=== PATIENT | male | born 1945 | race Caucasian/White ===

== ENCOUNTER → 2023-08-01 12:20 | Outpatient (BNVA) | payer OTHER, SELFPAY | PROVIDERS: PCP Family Medicine; Referring Provider Family Medicine; Visit Provider Surgery | DX: K40.90 Unilateral inguinal hernia, without obstruction or gangrene, not specified as recurrent (principal) | CPT/HCPCS: 99204 ==

== ENCOUNTER → 2023-08-15 10:38 | Outpatient (BNVA) | payer MEDICARE, SELFPAY | PROVIDERS: PCP Family Medicine; Visit Provider Family Medicine | DX: Z01.818 Encounter for other preprocedural examination (principal) | CPT/HCPCS: 80053; 85025 ==

== ENCOUNTER 2023-08-20 10:55 | Day surgery (SDC) | payer OTHER, SELFPAY ==
[2023-08-20] VITALS (10 sets, daily range): BP systolic 141–178; BP diastolic 74–97; PULSE 69–96; RESP 13–19; TEMP 36.4–36.9; O2SAT 94–100; BMI 25.0
--- NOTE | 2023-08-20 10:37 | P.HPUD_ITS ---
Surgery/Procedure H&P Update DATE OF PROCEDURE: August 20, 2023 DATE H&P PERFORMED: 08/01/23 H&P UPDATE INFORMATION: I have reviewed H&P completed within last 30 days, I have examined patient prior to procedure, No changes to prior documentation and [place] [facility] [place] indicated PLANNED PROCEDURE: Operation Date: 08/20/23 12:40 Proposed Procedures p [id number] lap possible open left inguinal hernia repair with mesh K40.90(Not Applicable) - Demond Roe MD
[2023-08-20] MEDS: sodium chloride 0.9% 1,000 ML 30 ML IV (11:29)
--- NOTE | 2023-08-20 12:21 | ANES.PREANE2 ---
Pre-Anesthetic Assessment Height/Weight: Height 1.83 m Weight 83.915 kg Temp Pulse Resp BP Pulse Ox O2 Del Method 97.5 F L 96 18 178/97 98 Room Air 08/20/23 11:20 08/20/23 11:20 08/20/23 11:20 08/20/23 11:20 08/20/23 11:20 08/20/23 11:21 Preop Diagnosis: Left inguinal hernia Operation Date: 08/20/23 12:40 Proposed Procedures p 61388 lap possible open left inguinal hernia repair with mesh K40.90(Not Applicable) - Demond Roe MD Familial anesthetic complications: None Was Beta Lior taken within 24 hours: N/A Was Clonidine taken within 24 hours: N/A Last intake: Intake Last Liquid Date 08/19/23 Last Liquid Time 19:00 Last Solid Date 08/19/23 Last Solid Time 19:00 Social No alcohol and No tobacco Exam alert, oriented x 3, clear to auscultation bilaterally and regular rate & rhythm Airway Mallampati: Class II Pulmonary Chronic Obstructive Pulmonary Disease (mild) CV/HEM Hypertension Anesthetic Plan ASA status: 3 Anesthesia: General Risk of > 500 ml blood loss (7ml/kg in children): No Medications/Allergies Home Medications Medication Instructions Recorded Confirmed Last Taken Type amlodipine 10 mg tablet 10 mg PO DAILY 08/15/23 08/20/23 08/19/23 History atorvastatin 10 mg tablet 10 mg PO DAILY 08/15/23 08/20/23 08/19/23 History benazepril 20 mg tablet 20 mg PO DAILY 08/15/23 08/20/23 08/19/23 History gabapentin 400 mg capsule 400 mg PO DAILY PRN Pain 08/15/23 08/20/23 08/19/23 History Allergies Allergy/AdvReac Type Severity Reaction Status Date / Time No Known Allergies Allergy Unverified 08/17/23 12:35 Current Medications Generic Name Dose Route Start Last Admin Trade Name Freq PRN Reason Stop Dose Admin Sodium Chloride 1,000 mls @ 30 mls/hr 08/20/23 11:15 08/20/23 11:29 Sodium Chloride 0.9% IV 08/21/23 11:14 30 mls/hr .Q24H NORMA Administration PFSH Anesthesia Social History Smoking and tobacco/nicotine status: never used tobacco/nicotine Alcohol intake: never Substance/Drug Use: current Substance/Drug use frequency: daily Data Anesthesia Cardiac Studies: No Data to Display
[2023-08-20] MEDS: ceFAZolin 2,000 MG in sodium chloride 0.9% (plus) 50 ML 100 MG IV (14:36)
[2023-08-20] MEDS: BUPivacaine 0.25% INJ 10 mL INJECTION (15:03)
[2023-08-20] MEDS: lidocaine-epi 1% PF 1:200,000 30 mL SDV INJECTION (15:03)
--- NOTE | 2023-08-20 16:19 | P.OP_ITS ---
Operative Report Date of procedure: August 20, 2023 Pre-op diagnosis: Left inguinal hernia Post-op diagnosis: Direct and indirect left inguinal hernia Post-op findings: There was a direct and indirect left inguinal hernia. Procedure done: Laparoscopic left inguinal hernia repair with mesh. Implants: Left 3D max mesh Medium size Specimens removed/disposition: None Surgeon: Demond Roe MD Resource Development Director: LUCIO OR STaff Estimated blood loss: 15 Complications: none apparent Brief History: 78-year-old male who presented to my clinic for evaluation of left inguinal hernia. After discussion of all risk and benefits as documented in my preop note we decided to proceed with laparoscopic left inguinal hernia repair with mesh. Procedure: Patient was brought into the OR, she was placed in a spine position general esthesia was given. The abdomen was prepped and draped in the usual sterile fashion. Timeout was conducted. An infraumbilical incision was made measuring 1.5 cm, this incision was deepened until the anterior rectus sheath was identified on the left side, the anterior rectus sheath was then opened with electrocautery, the rectus muscle was retracted laterally exposing the retrorectus space, a Spacemaker was placed in the retrorectus space and carefully advanced to the level of the pubis. Under direct visualization the Spacemaker balloon was inflated developing the space of Retzius. The Spacemaker was then removed and replaced with a 12 mm trocar with balloon. Under direct visualization additional 5 mm trocars were placed in the suprapubic and infraumbilical positions. I then proceeded with dissection, I cleared the Junaid ligament from the midline to the left side, at this point no evidence of femoral hernia was identified, I then develop the lateral space of Borgess, at this point I decided to evaluate the direct and indirect spaces, in the direct space it was noticeable that the patient had a hernia that appeared to contain fat. The hernia was reduced into the preperitoneal space. I then proceeded to dissect the indirect space with careful dissection I was able to pull down a small hernia sac, I did this with careful consideration of preserving the vas deferens and the testicular vessels. I then placed a medium size left-sided 3D max mesh in the space, the mesh was fixed to the coopers ligament with an absorbable tacker. Hemostasis was verified. The preperitoneal space was then deflated under direct visualization to ensure adequate mesh placement. Wounds were closed in layers using #0 Vicryl for the anterior rectus sheath, #3-0 Vicryl for the subcutaneous tissue with Monocryl for the skin. Dermabond was applied. The patient tolerated the procedure well, was extubated and transferred to PACU in stable condition.
--- NOTE | 2023-08-20 17:50 | ANE.PACU2 ---
Inpatient post-anesthesia follow up: Airway intact: Yes Vital signs: Temperature 98.4 F Pulse Rate 78 Respiratory Rate 16 Blood Pressure 154/85 Pulse Oximetry 96 Oxygen Delivery Me thod Room Air Oxygen Flow Rate 8 Fraction of Inspir ed Oxygen Hydration adequate: Yes Nausea and vomiting: No Pain level: 1 Mental status: Baseline
== END 2023-08-20 17:50 | disposition home or self-care (01) ==
PROVIDERS: PCP Family Medicine; Visit Provider Surgery
PROC: (CPT 49650; principal; 2023-08-20 12:10)
DX: K40.90 Unilateral inguinal hernia, without obstruction or gangrene, not specified as recurrent (principal); J44.9 Chronic obstructive pulmonary disease, unspecified; I10 Essential (primary) hypertension
CPT/HCPCS: 49650; 51702; J0690; J1100; J2405; J2704; J3010; J3490; J7030

== ENCOUNTER → 2023-09-04 12:57 | Outpatient (BNVA) | payer OTHER, SELFPAY | PROVIDERS: PCP Family Medicine; Visit Provider Surgery | DX: K40.90 Unilateral inguinal hernia, without obstruction or gangrene, not specified as recurrent (principal); Z98.890 Other specified postprocedural states | CPT/HCPCS: 99024 ==

== ENCOUNTER → 2023-12-25 13:37 | Outpatient (BNVA) | payer OTHER, SELFPAY | PROVIDERS: PCP Family Medicine; Visit Provider Nurse Practitioner Family | DX: D48.5 Neoplasm of uncertain behavior of skin (principal); D22.4 Melanocytic nevi of scalp and neck; L81.4 Other melanin hyperpigmentation; L73.8 Other specified follicular disorders; L91.8 Other hypertrophic disorders of the skin; L57.8 Other skin changes due to chronic exposure to nonionizing radiation | CPT/HCPCS: 11102; 69100; 99203 ==

== ENCOUNTER → 2024-03-25 14:16 | Outpatient (BNVA) | payer OTHER, SELFPAY | PROVIDERS: PCP Family Medicine; Visit Provider Nurse Practitioner Family | DX: L72.0 Epidermal cyst (principal); L82.1 Other seborrheic keratosis; D22.4 Melanocytic nevi of scalp and neck; L81.4 Other melanin hyperpigmentation; Z86.007 Personal history of in-situ neoplasm of skin; Z09 Encounter for follow-up examination after completed treatment for conditions other than malignant neoplasm | CPT/HCPCS: 99213 ==

== ENCOUNTER → 2024-09-23 14:15 | Outpatient (BNVA) | payer OTHER, SELFPAY | PROVIDERS: PCP Family Medicine; Visit Provider Nurse Practitioner Family | DX: L82.1 Other seborrheic keratosis (principal); L81.4 Other melanin hyperpigmentation; Z08 Encounter for follow-up examination after completed treatment for malignant neoplasm; Z86.007 Personal history of in-situ neoplasm of skin; D48.5 Neoplasm of uncertain behavior of skin; L57.0 Actinic keratosis | CPT/HCPCS: 11102; 17000; 99213 ==

== ENCOUNTER → 2024-10-27 10:55 | Outpatient (BNVA) | payer OTHER, SELFPAY | PROVIDERS: PCP Family Medicine; Visit Provider Dermatology | DX: D04.39 Carcinoma in situ of skin of other parts of face (principal) | CPT/HCPCS: 17282 ==

== ENCOUNTER 2024-11-19 07:40 | Outpatient (CLI) | payer OTHER, SELFPAY ==
--- NOTE | 2024-11-19 07:55 | ECG_ITS ---
[facility] Test Date: 2024-11-19 Pat Name: Tigre Avila Department: Room: Gender: Male Director Of Home Health Services: : 1945 Requested By: Malorie Jaramillo Order Number: [id number] Leandro MD: Pelon Dacosta M.D. Interpretive Statements Lung unchanged pre/post procedure; Intraprocedure shortess of breath; Symptoms resoled by discharge; Symptoms resoled by discharge PROCEDURE: At the baseline, the EKG revealed normal sinus rhythm with incomplete right bundle branch block pattern. Some nonspecific ST-T changes. The baseline heart was 95 bpm with a blood pressue of 167/103 mm of Hg Lexiscan was infused over a period of 20 seconds. A total of 0.4 milligrams of Lexiscan was infused. The stress phase was continued for a total of 5 minutes. Heart rate at the end of the stress phase was 100 bpm with a blood pressure 165/87 mm of Hg. The EKG at the peak infusion revealed no significant changes. Sestamibi was injected 20 seconds after the Lexiscan infusion. Heart rate at the end of the recovery phase was 100 bpm with a blood pressure of 155/85 mm of Hg. CONCLUSION: 1. No significant EKG changes with the LexiScan infusion 2. No LexiScan induced chest pain or cardiac arrhythmia 3. Normal blood pressure and heart rate response 4. Sestamibi/sestamibi perfusion scan pending; see separate report. Electronically Signed On 11-21-2024 22:31:22 CDT by Pelon Dacosta M.D. [email or web address]
--- NOTE | 2024-11-19 07:56 | NMCV_ITS ---
NM miugelito perf SPECT r/s* [id number] Tigre Avila Age: 79 Gender: M : 1945 Exam Date: 11/19/2024 08:55 Ordering Phys: Malorie Jaramillo MD Technologist: BRITTANY Lord Exam Location: [facility] Indications: cp STRESS TEST Please see separate stress test report in [facility] for full findings IMAGE PROTOCOL Rest/Stress 1 Lexiscan Day Radiopharmaceutical Dose (mCi) Administration Site Administered by Rest: Tc-99m 10.8 IV Dejah Garcia, [employer] REPA[employer] Sestamibi Stress:Tc-99m 32.7 IV Dejah Currangle, [employer] REPAIR[employer] Sestamibi Rest: 19-Nov-2024 60 Discovery 630 Stress: 19-Nov-2024 30 Discovery 630 0.4mg Lexiscan. Images obtained in supine and prone position. SPECT RESULTS Technical Quality: Good Raw Data Analysis: Normal Image Corrections: No attenuation or motion correction applied Summed Stress Score: 3 Summed Rest Score: 7 Summed Difference Score: 1 PERFUSION FINDINGS Small to moderate area of moderately decreased tracer uptake involving the basal mid and apical inferior wall segments. Slight reversibility was noted in the mid segment in the supine imaging. But compared with the prone imaging, no significant reversible defects were noted FUNCTIONAL RESULTS (calculated via Gated SPECT) Stress Image LV EF (%): 66 Stress EDV (mL):101 TID: 0.88 Stress ESV (mL):34 FUNCTIONAL FINDINGS: Segmental wall motion analysis revealing no gross wall motion abnormalities IMPRESSIONS 1. Myocardial perfusion imaging revealing small to moderate area of decreased tracer uptake involving inferior wall region with subtle area of inconsistent reversibility, most likely artifactual. 2. LV ejection fraction was estimated to be 66%. 3. LV wall motion analysis revealing no gross wall motion abnormalities. 4. Normal LV volume. Possibly no significant coronary ischemia, based on the above findings. No similar previous studies are available for comparison Dr Pelon Dacosta MD FAC (Electronically Signed) Final Date: 19 November 2024 13:29 S
[2024-11-19 08:04] VITALS: BMI 26.4
--- NOTE | 2024-11-19 09:10 | PC.NURSE ---
The patient came over to [facility] from nuclear medicine with complaints of severe sciatic pain in both legs. He is having trouble walking with a steady gait and stating that he will not be able to walk on the treadmill. Dr. Dacosta was notified and new orders received to change the test to a Lexiscan sestamibi stress test. This was explained to the patient in detail and he wishes to proceed.
[2024-11-19] MEDS: regadenoson 0.4 Mg/5 ml Syringe IVP (09:23)
[2024-11-19 09:42] VITALS: BP 155/85; PULSE 96
== END 2024-11-19 07:41 | disposition home or self-care (01) ==
LOC: CDL 07:41
PROVIDERS: PCP Family Medicine; Visit Provider Family Medicine
DX: R06.00 Dyspnea, unspecified (principal); R93.1 Abnormal findings on diagnostic imaging of heart and coronary circulation
CPT/HCPCS: 36415; 78452; 93017; 96374; A9500; J2785

== ENCOUNTER → 2025-03-24 14:22 | Outpatient (BNVA) | payer OTHER, SELFPAY | PROVIDERS: PCP Family Medicine; Visit Provider Nurse Practitioner Family | DX: L82.1 Other seborrheic keratosis (principal); L81.4 Other melanin hyperpigmentation; Z08 Encounter for follow-up examination after completed treatment for malignant neoplasm; Z86.007 Personal history of in-situ neoplasm of skin; L82.0 Inflamed seborrheic keratosis; L53.8 Other specified erythematous conditions; R20.8 Other disturbances of skin sensation | CPT/HCPCS: 17110; 99213 ==